=== PATIENT | female | born 1970 | race Caucasian/White ===

== ENCOUNTER → 2017-06-01 | Outpatient (CLI) | payer OTHER ==
--- NOTE | 2017-06-01 11:33 | Diagnostic Imaging Report ---
Bilateral screening mammogram 2D views with tomosynthesis The current study was also evaluated with a Computer Aided Detection (CAD) system. Indication: Screening. No current complaints stated on the questionnaire. COMPARISON: 09/08/15. Findings: The breasts are composed of extremely dense parenchyma which decreases mammographic sensitivity. There is an asymmetry measuring 9 mm with increased density seen in the medial aspect of the left breast, favored to be summation artifact of parenchyma. The right breast demonstrates no definite change. Impression: Extremely dense breast parenchyma and question of a medial left breast asymmetry. Focal compression views, evaluation and bilateral ultrasound are recommended for further evaluation. BI-RADS 0. ACR BI-RADS Category 0: Incomplete. (Needs additional imaging evaluation). Result letter will be mailed to the patient. Note: At least 10% of breast cancer is not imaged by mammography. Dictated on workstation # [id number]
== END ==
LOC: RAD 09:58
PROVIDERS: ATTEND Obstetrics & Gynecology
DX: Z12.31 Encounter for screening mammogram for malignant neoplasm of breast (principal)
CPT/HCPCS: 77067

== ENCOUNTER → 2017-06-08 | Outpatient (CLI) | payer OTHER ==
--- NOTE | 2017-06-08 14:06 | Diagnostic Imaging Report ---
EXAMINATION: Left breast diagnostic mammogram with tomography. The current study was also evaluated with a Computer Aided Detection (CAD) system. INDICATION: Medial left breast asymmetry. COMPARISON: 06/25/2014. FINDINGS: The asymmetry persists on the focal compression view; however, tomographic evaluation does not prove an underlying mass. There is an asymmetry also seen along the superior aspect of the true lateral view. A focal compression view was also performed of this area and demonstrates less prominent asymmetry and suggestion of summation artifact of underlying tissue and vessels based on the tomographic evaluation. IMPRESSION: The asymmetries in the medial and upper aspect of the left breast are likely summation artifact of parenchyma. Dense background parenchyma is present. A bilateral ultrasound is pending. ACR BI-RADS Category 0: Incomplete. (Needs additional imaging evaluation). Result letter will be mailed to the patient. Note: At least 10% of breast cancer is not imaged by mammography. Dictated by: Dictated on workstation # [id number]
--- NOTE | 2017-06-08 14:14 | Diagnostic Imaging Report ---
EXAMINATION: Bilateral breast ultrasound. INDICATION: Dense breasts. Asymmetries along the upper and medial aspect of the left breast on mammography. FINDINGS: The four-quadrants and retroareolar region of each breast were scanned with no underlying abnormality seen. There is a simple cyst at the 2 o'clock zone 4 cm from the nipple measuring 1 cm the left breast. No suspicious lesion is seen in both breasts. IMPRESSION: Essentially negative ultrasound. There is no correlating abnormality to the asymmetry seen in the upper and medial aspect of the left breast, likely from summation artifact of the dense background parenchyma. A 6 month followup left breast mammogram is recommended to ensure no adverse development. ACR BI-RADS Category 3: Probably benign findings. Dictated by: Dictated on workstation # [id number]
== END ==
LOC: RAD 08:22
PROVIDERS: ATTEND Obstetrics & Gynecology
DX: R92.8 Other abnormal and inconclusive findings on diagnostic imaging of breast (principal)

== ENCOUNTER → 2018-07-01 | Outpatient (CLI) | payer OTHER ==
--- NOTE | 2018-07-01 14:20 | Diagnostic Imaging Report ---
Indication: Left breast density. Patient presents for followup. Correlation is made with prior mammogram from 06/01/2017 and 09/08/2015. 2-D and 3-D bilateral diagnostic mammography was performed with CAD. Both breasts remain heterogeneously dense, limiting the sensitivity of mammography. The parenchymal pattern appears stable. No discrete mass or malignant-appearing microcalcifications are seen. The axillae are unremarkable. Impression: BI-RADS category 1 Stable bilateral mammograms. No mammographic features suspicious for malignancy are identified. Patient may return to routine annual screening mammography. ACR BI-RADS Category 1: Negative. Result letter will be mailed to the patient. Note: At least 10% of breast cancer is not imaged by mammography. Dictated by: Dictated on workstation # [id number]
== END ==
LOC: RAD 12:44
PROVIDERS: ATTEND Obstetrics & Gynecology
DX: R92.2 Inconclusive mammogram (principal); Z87.898 Personal history of other specified conditions; Z12.31 Encounter for screening mammogram for malignant neoplasm of breast
CPT/HCPCS: 77066

== ENCOUNTER → 2018-12-17 | Outpatient (CLI) | payer OTHER ==
--- NOTE | 2018-12-17 13:04 | Diagnostic Imaging Report ---
PROCEDURE: US Thyroid. TECHNIQUE: Multiple real-time grayscale images were obtained of the thyroid in various projections. INDICATION: Thyromegaly. COMPARISON: None available. FINDINGS: Right thyroid lobe: The right thyroid lobe measures 4.0 x 1.8 x 1.3 cm. It demonstrates diffuse homogeneous echogenicity. No nodule or cyst. Isthmus: The thyroid isthmus is normal in echogenicity and thickness measuring 0.4 cm. Left thyroid lobe: The left thyroid lobe measures 4.2 x 2.0 x 1.4 cm. It demonstrates diffuse homogeneous echogenicity. No nodule or cyst. IMPRESSION: Normal-sized thyroid without focal nodule or cyst. Dictated by: Dictated on workstation # [id number]
== END ==
LOC: RAD 07:57
PROVIDERS: ATTEND Family Medicine
DX: E01.0 Iodine-deficiency related diffuse (endemic) goiter (principal)
CPT/HCPCS: 76536

== ENCOUNTER → 2018-12-24 | Outpatient (CLI) | payer OTHER ==
--- NOTE | 2018-12-24 11:27 | Diagnostic Imaging Report ---
INDICATION: Screening for osteoporosis. COMPARISON: None FINDINGS: The bone mineral density of hips and spine was measured. There are no prior studies available for comparison. The T score for the spine is -0.1. The T score for left hip is -0.7 and for the right hip -0.9. Furthermore the T score for the left femoral neck is -0.8 and for the right femoral neck -0.9. All of these values fall within the range of normal. AP Spine L1-L4: [BMD (g/cm2): 1.187] [T-Score: -0.1] [Z-Score: -0.2] [BMD Previous: N/A] [BMD % Change: N/A] LT Hip Neck: [BMD (g/cm2): 0.929] [T-Score: -0.8] [Z-Score: -0.3] LT Hip Total: [BMD (g/cm2):0.920] [T-Score:-0.7] [Z-Score: -0.6] [BMD Previous: N/A] [BMD % Change: N/A] RT Hip Neck: [BMD (g/cm2):0.929] [T-Score:-0.8] [Z-Score:-0.3] RT Hip Total: [BMD (g/cm2):0.891] [T-score:-0.9] [Z-Score:-0.8] [BMD Previous:N/A] [BMD % Change:N/A] *Indicates significant change from prior examination based on 95% confidence level. World Health Organization criteria for BMD interpretation classify patients as Normal (T-score at or above -1.0), Osteopenic (T-score between -1.0 and -2.5) or Osteoporotic (T-score at or below -2.5). LIMITATIONS AND MODIFICATION: None. FRACTURE RISK (FRAX SCORE): The ten year probability of (%): Major Osteoporotic Fracture: [N/A] Hip Fracture: [N/A] IMPRESSION: 1. The bone mineral density of hips and spine is within normal limits. 2. 3. See below National Osteoporosis Foundation guidelines on when to potentially initiate pharmacologic therapy. Based on the National Osteoporosis Foundation Guidelines, pharmacologic treatment should be initiated in any of the following, unless clinical conditions suggest otherwise: * Any patient with prior fragility fracture of the hip or vertebrae. A spine fracture indicates 5X risk for subsequent spine fracture and 2X risk for subsequent hip fracture. * Osteoporosis (T-score <-2.5). * Postmenopausal women and men age 50 and older with low bone mass/osteopenia (T-score between -1.0 and -2.5) by DXA and 10-year major osteoporotic fracture greater than 20% or a 10-year probability of hip fracture greater than 3%. These fracture risks are supplied above in the FRAX score, if applicable. * Clinician judgement and/or patient preferences may indicate treatment for people with 10-year fracture probabilities above or below these levels. Dictated by: Dictated on workstation # [id number]
== END ==
LOC: RAD 10:04
PROVIDERS: ATTEND Family Medicine
DX: Z13.820 Encounter for screening for osteoporosis (principal)
CPT/HCPCS: 77080

== ENCOUNTER 2019-01-20 05:34 | Outpatient (CLI) | payer OTHER ==
[~2019-01-20] VITALS: Ht 172.7 cm; Wt 80.3 kg
[2019-01-20] MEDS ORDERED: LOSA100T57 PO (12:54)
[2019-01-20] MEDS ORDERED: HYDR25TA4 PO (12:54)
[2019-01-20] MEDS ORDERED: ASPI-586 PO (12:54)
[2019-01-20] MEDS ORDERED: LORA10TA76 PO (12:54)
[2019-01-20] MEDS ORDERED: AMLO2.5T2 PO (12:54)
== END 2019-01-20 12:55 | disposition home or self-care (01) ==
LOC: PREOP 05:34
PROVIDERS: ATTEND Surgery
DX: Z01.818 Encounter for other preprocedural examination (principal)

== ENCOUNTER 2019-01-27 07:05 | Day surgery (SDC) | payer OTHER ==
[~2019-01-27] VITALS: Ht 172.7 cm; Wt 80.3 kg
[~2019-01-27 07:05] MED LIST: AMLO2.5T2 PO; ASPI-586 PO; HYDR25TA4 PO; LORA10TA76 PO; LOSA100T57 PO
[2019-01-27] MEDS ORDERED: LACTATED RINGERS 1,000 ML IV STA (07:06)
[2019-01-27] MEDS ORDERED: MIDAZOLAM 2 MG/2 ML (VERSED) VIAL ONE (07:10)
[2019-01-27] MEDS ORDERED: PROPOFOL INJECTION 50 ML IV ONE (07:10)
[2019-01-27] MEDS ORDERED: LACTATED RINGERS 1,000 ML IV ONE (07:17)
[2019-01-27 07:36] VITALS: BP 141/92
--- NOTE | 2019-01-27 08:22 | Progress Note-Pre Operative ---
Pre-Operative Progress Note H&P Reviewed The H&P was reviewed, patient examined and no changes noted. Time Seen by Provider: 08:16 Date H&P Reviewed: January 27, 2019 Time H&P Reviewed: 08:15 Pre-Operative Diagnosis: Screening colon DAVON GONZALES DO January 27, 2019 08:22
--- NOTE | 2019-01-27 08:54 | Progress Note-Post Operative ---
Post-Operative Progess Note Surgeon (s)/Director Supply Chain (s) Surgeon DAVON GONZALES DO Director Supply Chain: none Pre-Operative Diagnosis Screening colon Post-Operative Diagnosis same plus internal hemorrhoids Procedure & Operative Findings Date of Procedure 01/27/19 Procedure Performed/Findings colonoscopy Anesthesia Type IV sedation by METER READING CLERK Estimated Blood Loss Estimated blood loss (mL): none Specimens/Packing Specimens Removed none DAVON GONZALES DO January 27, 2019 08:54
--- NOTE | 2019-01-27 08:55 | Endoscopy Discharge Instruct ---
Endo Procedure/Findings Findings 1.: Internal Hemorrhoids Discharge Instructions - Activity: You might feel a little sleepy until tomorrow. This is due to the medicine you received to relax you. Until tomorrow, you should: NOT drive a car, operate machinery or power tools. NOT drink any alcoholic beverages. NOT make any important decisions or sign importortant papers. Do not return to work until tomorrow, unless otherwise instructed. Resume previous activities tomorrow. Diet: Start by taking liquids. If you tolerate liquids, advance to solid food. make an appointment for one week Instructions: 1.: Colonscopy in 10 years Notify Physician - If you experience excessive bleeding, unusual abdominal pain, fever, or chest pain, contact your doctor immediately. Follow-Up: - I have received and understand the above instructions and will call my doctor if I have any further questions. Patient Signature Date Nurse Signature Other (Relationship) DAVON GONZALES DO January 27, 2019 08:55
[2019-01-27 09:00] VITALS: BP 121/77
[2019-01-27 09:30] VITALS: BP 135/85
[2019-01-27 09:45] VITALS: BP 135/85
--- NOTE | 2019-01-27 14:47 | Anesthesia-General Post-Op ---
MAC Patient Condition Mental Status/LOC: Same as Preop Cardiovascular: Satisfactory Nausea/Vomiting: Absent Respiratory: Satisfactory Pain: Controlled Complications: Absent Post Op Complications Complications None Follow Up Care/Instructions Patient Instructions None needed. Anesthesiology Discharge Order Discharge Order Patient was seen after the procedure this morning and she was doing well, no complaints, stable vital signs, no apparent adverse anesthesia problems. . BETTY JUSTICE DO January 27, 2019 14:47
--- NOTE | 2019-01-27 23:56 | OPERATIVE REPORT ---
DATE OF SERVICE: 01/27/2019 PREOPERATIVE DIAGNOSIS: Screening colonoscopy. POSTOPERATIVE DIAGNOSES: Screening colonoscopy, internal hemorrhoids. PROCEDURE: Colonoscopy. SURGEON: Justin Chen DO. ALARM SECURITY OR SURVEILLANCE MONITOR: None. ANESTHESIA: IV sedation by LEATHER PRODUCTION MACHINE OPERATOR. SPECIMENS: None. BLOOD LOSS: None. FLUIDS: Per anesthesia. POSTOPERATIVE CONDITION: Stable. INDICATION FOR PROCEDURE: The patient is a 48-year-old female who has needed a screening colonoscopy. FINDINGS: The patient had some very minimal internal hemorrhoids, but otherwise no other obvious pathology seen. PROCEDURE NOTE: After informed consent was obtained, the patient was brought to the endoscopy suite, placed in the bed in left lateral decubitus position. She was administered IV sedation by the LEATHER PRODUCTION MACHINE OPERATOR. We then monitored her vitals the entire time, heart rate, blood pressure and pulse ox. A scope was inserted, pushed all the way up to the cecum, took a picture of appendiceal orifice, noted the ileocecal valve and able to get into the terminal ileum, took a picture, looked normal and then slowly withdrew the scope insufflating to look circumferentially at the tanner looking the cecum, up the ascending colon to the hepatic flexure, then down the transverse colon, splenic flexure, into the descending colon. Finally, into the sigmoid and then down in the rectum, retroflexed the rectal vault, saw some very very minimal internal hemorrhoids. Pictures taken and the scope was then removed. The patient tolerated the procedure. She recovered in endoscopy suite. Job ID: [id number] DocumentID: [id number] Dictated Date: 01/27/2019 13:35:20 Spout Liner Helper Date: 01/27/2019 23:55:50 Dictated By: JUSTIN CHEN DO
== END 2019-01-27 09:45 | disposition home or self-care (01) ==
LOC: ENDO 07:05
PROVIDERS: ATTEND Surgery
DX: Z12.11 Encounter for screening for malignant neoplasm of colon (principal); K64.8 Other hemorrhoids; I10 Essential (primary) hypertension; K21.9 Gastro-esophageal reflux disease without esophagitis; F41.9 Anxiety disorder, unspecified; J45.909 Unspecified asthma, uncomplicated; Z79.82 Long term (current) use of aspirin; Z79.899 Other long term (current) drug therapy; Z80.0 Family history of malignant neoplasm of digestive organs; Z87.891 Personal history of nicotine dependence

== ENCOUNTER → 2019-05-01 | Outpatient (CLI) | payer OTHER | LOC: CARD 11:50 | PROVIDERS: ATTEND Internal Medicine Cardiovascular Disease | DX: I73.00 Raynaud's syndrome without gangrene (principal); I10 Essential (primary) hypertension; R07.9 Chest pain, unspecified | CPT/HCPCS: 93306 ==

== ENCOUNTER → 2020-03-18 | Outpatient (CLI) | payer OTHER | LOC: LAB 15:33 | PROVIDERS: ATTEND Emergency Medicine | DX: M79.10 Myalgia, unspecified site (principal); R53.83 Other fatigue; Z20.828 Contact with and (suspected) exposure to other viral communicable diseases | CPT/HCPCS: 87635 ==

== ENCOUNTER → 2020-10-15 | Outpatient (CLI) | payer OTHER ==
--- NOTE | 2020-10-15 11:50 | Diagnostic Imaging Report ---
INDICATION: Routine screening. COMPARISON is made with prior mammograms 07/01/2018 and 06/01/2017. 2-D and 3-D screening mammography was performed with CAD. Both breasts remain heterogeneously dense, limiting the sensitivity of mammography. Intraparenchymal lymph node upper outer right breast is stable. Small intraparenchymal lymph nodes upper-outer left breast are stable. No spiculated mass or malignant appearing microcalcifications are seen. Axillae are unremarkable. IMPRESSION: BI-RADS Category 2 No mammographic features suspicious for malignancy are identified. ACR BI-RADS Category 2: Benign findings. Result letter will be mailed to the patient. Note: At least 10% of breast cancer is not imaged by mammography. Dictated by: Dictated on workstation # [id number]
== END ==
LOC: RAD 08:13
PROVIDERS: ATTEND Obstetrics & Gynecology
DX: Z12.31 Encounter for screening mammogram for malignant neoplasm of breast (principal)
CPT/HCPCS: 77063; 77067

== ENCOUNTER → 2020-10-18 | Outpatient (CLI) | payer OTHER ==
[~2020-10-18] VITALS: Ht 172 cm; Wt 86.0 kg
[~2020-10-18] MED LIST changes: +CATHETER FLUSH 10 ML SYR IV PRN
[2020-10-18 08:52] VITALS: BP 123/76
--- NOTE | 2020-10-18 11:40 | Cardiology Stress Test Report ---
Stress Test Report Date of Procedure/Referring: Date of Procedure: Oct 18, 2020 PCP Lisa Izaguirre MD Admitting Physician Watson Costa MD Indications: Chest pain Baseline Heart Rate: 70 Baseline Blood Pressure: Blood Pressure Systolic: 123 Blood Pressure Diastolic: 76 Vital Signs Date Time Temp Pulse Resp B/P (MAP) Pulse Ox O2 Delivery O2 Flow Rate FiO2 10/18/20 08:52 70 123/76 (92) 99 Baseline Vital Signs Vital Signs Date Time Temp Pulse Resp B/P (MAP) Pulse Ox O2 Delivery O2 Flow Rate FiO2 10/18/20 08:52 70 123/76 (92) 99 Baseline EKG: Baseline EKG: normal sinus rhythm Summary: After explaining the procedure and details to the patient, she signed the consent and was brought to the stress nuclear laboratory. Patient exercised on standard Josue protocol, EKG, heart rate and blood pressure were monitored continuously, resting and stress doses of radio tracer were injected, imaging was acquired and reviewed in the short axis, horizontal long axis and vertical long axis views Patient was able to exercise for a total of 9 minutes on Josue protocol, METs 10.5 Maximum heart rate 144 Maximum blood pressure 163/74 Stress EKG, Minimal nondiagnostic changes Recovery EKG, Return to baseline TID: 0.96 SSS: 2 SDS: 2 EF: 62 Conclusion: 1. Good exercise tolerance for total of 9 minutes on standard Josue protocol, 10.5 metastases achieving 85 percent of maximum expected heart rate 2. Appropriate heart rate and blood pressure response to exercise returned to baseline during recovery 3. Minimal nondiagnostic EKG changes with exercise returned to baseline during recovery 4. Mild apical thinning, breast attenuation, no significant ischemia or infarction on SPECT images 5. Normal left ventricular size, EF 62 percent LISA IZAGUIRRE MD Oct 18, 2020 11:40
== END ==
LOC: CARD 07:45
PROVIDERS: ATTEND Internal Medicine Cardiovascular Disease
DX: R07.9 Chest pain, unspecified (principal); R94.31 Abnormal electrocardiogram [ECG] [EKG]
CPT/HCPCS: 78452; 93017; A9502

== ENCOUNTER → 2021-01-08 | Outpatient (CLI) | payer OTHER ==
[~2021-01-08] MED LIST changes: -CATHETER FLUSH 10 ML SYR IV PRN
== END ==
LOC: LAB 11:28
PROVIDERS: ATTEND Emergency Medicine
DX: T75.3XXA Motion sickness, initial encounter (principal); Z20.822 Contact with and (suspected) exposure to COVID-19
CPT/HCPCS: 87635

== ENCOUNTER → 2021-12-19 | Outpatient (CLI) | payer OTHER ==
--- NOTE | 2021-12-19 11:19 | Diagnostic Imaging Report ---
Indication: Routine screening. Comparison is made with prior mammograms 10/15/2020 and 07/01/2018. 2-D and 3-D bilateral screening mammography was performed with CAD. Both breasts are heterogeneously dense, limiting the sensitivity of mammography. Intraparenchymal lymph node in the upper right breast appears stable. Benign lymph nodes in the upper left breast are stable. No new mass or malignant-appearing microcalcifications are seen. Axillae are unremarkable. IMPRESSION: BI-RADS Category 2 No mammographic features suspicious for malignancy are identified. ACR BI-RADS Category 2: Benign findings. Result letter will be mailed to the patient. Note: At least 10% of breast cancer is not imaged by mammography. Dictated by: Dictated on workstation # [id number]
== END ==
LOC: RAD 08:46
PROVIDERS: ATTEND Family Medicine
DX: Z12.31 Encounter for screening mammogram for malignant neoplasm of breast (principal)
CPT/HCPCS: 77063; 77067

== ENCOUNTER → 2023-01-22 | Outpatient (CLI) | payer OTHER ==
--- NOTE | 2023-01-22 17:02 | Diagnostic Imaging Report ---
INDICATION: Tailbone pain x 1 year. FINDINGS: AP and lateral views of the sacrum and coccyx show slight dorsal displacement of the distal coccyx that could be from previous trauma. IMPRESSION: Slight dorsal offset of the distal coccyx, consistent with remote trauma. Dictated by: Dictated on workstation # [id number]
--- NOTE | 2023-01-22 18:47 | Diagnostic Imaging Report ---
PROCEDURE: US non-OB pelvis comp/trans. TECHNIQUE: Multiple real-time grayscale images were obtained of the pelvis in various projections endovaginally. Transabdominal imaging was also performed. INDICATION: Abnormal uterine bleeding. COMPARISON: None. FINDINGS: Uterus is anteverted and measures 9.8 x 5.3 x 6 cm. Relative hypoechoic area is identified anteriorly within the lower uterine segment and measures 2.4 x 1.6 x 1.8 cm and may be on the basis of a fibroid. Endometrial stripe is abnormally thickened and heterogeneous. It measures 16 mm in AP thickness. There is also a more focal hypoechoic area posteriorly within the lower endometrial region that measures 1.5 x 0.6 cm. Right ovary measures 2 x 1.5 x 2.1 cm, and the left measures 2.6 x 1.6 x 2.9 cm. Anechoic benign-appearing cyst of the right ovary measures 1.6 x 1.3 x 1.7 cm. Cystic appearing structure is also seen associated with the left ovary, but is difficult to adequately visualize. IMPRESSION: 1. Abnormal heterogeneous thickened appearance of the uterus with more focal hypoechoic area in the lower segment. This is a concerning finding especially given patient's postmenopausal status. Further evaluation is advised. 2. Probable fibroid within the lower anterior myometrium. 3. Bilateral ovarian cysts. Dictated by: Dictated on workstation # [id number]
== END ==
LOC: RAD 12:12
PROVIDERS: ATTEND Family Medicine
DX: N93.9 Abnormal uterine and vaginal bleeding, unspecified (principal); N83.201 Unspecified ovarian cyst, right side; N83.202 Unspecified ovarian cyst, left side
CPT/HCPCS: 72220; 76830; 76856

== ENCOUNTER 2023-03-05 05:30 | Outpatient (CLI) | payer OTHER ==
[~2023-03-05] VITALS: Ht 172.7 cm; Wt 90.9 kg
[~2023-03-05 05:30] MED LIST changes: -LOSA100T57 PO; +LOSA100T58 PO
[2023-03-05] MEDS ORDERED: RT-ALBUINH INH (15:09)
[2023-03-05] MEDS ORDERED: LEVO88CA4 PO (15:09)
[2023-03-05] MEDS ORDERED: LOSA1TAB20 PO (15:09)
[2023-03-05] MEDS ORDERED: MULT-1136 PO (15:09)
== END 2023-03-05 15:10 | disposition home or self-care (01) ==
LOC: PREOP 05:30
PROVIDERS: ATTEND Obstetrics & Gynecology
DX: Z01.818 Encounter for other preprocedural examination (principal)

== ENCOUNTER 2023-03-12 07:37 | Day surgery (SDC) | payer OTHER ==
[2023-03-12] VITALS (11 sets, daily range): BP systolic 118–135; BP diastolic 70–85
[~2023-03-12] VITALS: Ht 172.7 cm; Wt 90.9 kg
[~2023-03-12 07:37] MED LIST changes: +LEVO88CA4 PO; +LOSA1TAB20 PO; +MULT-1136 PO; +RT-ALBUINH INH
[2023-03-12] MEDS ORDERED: MIDAZOLAM 2 MG/2 ML (VERSED) VIAL ONE (08:04)
[2023-03-12] MEDS ORDERED: ONDANSETRON 4 MG/2 ML (SDV) Z0FRAN ONE (08:04)
[2023-03-12] MEDS ORDERED: LIDOCAINE PF 2% 5 ML (XYLOCAINE) VIAL ONE (08:04)
[2023-03-12] MEDS ORDERED: fentaNYL INJ 100 MCG/2 ML AMP ONE (08:04)
[2023-03-12] MEDS ORDERED: SEVOFLURANE (ULTANE) 15 ML INHAL SOLN ONE (08:04)
[2023-03-12] MEDS ORDERED: proPOfol 200 MG/20 ML (DIPRIVAN) VIAL IV ONE (08:04)
[2023-03-12] MEDS: LACTATED RINGERS 1,000 ML IV PRN ×2 (08:49→09:40)
[2023-03-12] MEDS ORDERED: ASPI-1238 PO (08:57)
--- NOTE | 2023-03-12 09:33 | Progress Note-Pre Operative ---
Pre-Operative Progress Note Date H&P Reviewed: Mar 12, 2023 Time H&P Reviewed: 09:32 History & Physical: H&P Reviewed, No changes noted Pre-Operative Diagnosis: AUB endometrial polyp MICHAEL ROSENBERG DO Mar 12, 2023 09:33
--- NOTE | 2023-03-12 10:26 | Hysteroscopy D&C Operative ---
Hysteroscopy D&C Note Hysteroscopy D&C Note Date of Procedure: 03/12/23 Preoperative Diagnosis: Elijah harry a (53 /Para / , Gestational Age (wks) with [] Postoperative Diagnosis: Same Surgeon: MICHAEL ROSENBERG Director Of Perioperative Services: [none] Anesthesia: General Name of the Procedure: Hysteroscopy, dilatation and curettage Findings of the Procedure: Multiple endometrial polyps EBL: Minimal Specimen(s) collected/removed: Endometrial Curettings Complications: None[] Condition: []Stable to recovery room Indications for Procedure: This 53-year-old Presents for a D&C hysteroscopy secondary to abnormal uterine bleeding with endometrial polyps. Risks, benefits and alternatives to the proposed procedure were discussed with the patient and informed consent was obtained. Description of Procedure: The patient was taken to the operating room and placed in the dorsal supine position. General anesthesia was obtained without difficulty by our anesthesia colleagues. Her legs were placed in stirrups and she was moved to the dorsal lithotomy position. The vagina, perineum and vulva were prepped and draped in the typical sterile fashion. The bladder was emptied for 125 cc A weighted speculum was placed in the vaginal vault and the anterior lip of the cervix was grasped with a single-tooth tenaculum. The uterus sounded to 10 cm. The cervix was gently dilated with Hegar dilators to accommodate the hysteroscope. The hysteroscope was inserted and multiple endometrial polyps were seen. Both ostia were visualized. Endometrial curettings were obtained until there was a good uterine cry and sent to pathology. The procedure was complete and all instruments were removed from the vagina. Sponge and instrument counts were correct. The patient was awakened from anesthesia and taken to the recovery room in stable condition. Vitals - Labs Vital Signs - I&O Vital Signs Date Time Temp Pulse Resp B/P (MAP) Pulse Ox O2 Delivery O2 Flow Rate FiO2 03/12/23 07:45 37.1 69 20 127/78 (94) 100 Room Air MICHAEL ROSENBERG DO Mar 12, 2023 10:26
[2023-03-12] MEDS ORDERED: IBUP-1773 PO (10:27)
--- NOTE | 2023-03-12 10:28 | Anesthesia-General Post-Op ---
General Patient Condition Mental Status/LOC: Same as Preop Cardiovascular: Satisfactory Nausea/Vomiting: Absent Respiratory: Satisfactory Pain: Controlled Complications: Absent Post Op Complications Complications None Follow Up Care/Instructions Patient Instructions None needed. Anesthesia/Patient Condition Patient Condition Patient is doing well, no complaints, stable vital signs, no apparent adverse anesthesia problems. No complications reported per nursing. CARMEN GUTIERREZ CRNA Mar 12, 2023 10:28
[2023-03-12] MEDS ORDERED: fentaNYL INJ 100 MCG/2 ML AMP IVP ONE (10:30)
[2023-03-12] MEDS ORDERED: ONDANSETRON 4 MG/2 ML (SDV) Z0FRAN IVP PRN (10:30)
== END 2023-03-12 12:20 | disposition home or self-care (01) ==
LOC: SDC 07:37
PROVIDERS: ATTEND Obstetrics & Gynecology
DX: N84.0 Polyp of corpus uteri (principal); Z87.891 Personal history of nicotine dependence
CPT/HCPCS: 84703; 87081

== ENCOUNTER → 2023-05-08 | Outpatient (CLI) | payer OTHER ==
[~2023-05-08] MED LIST changes: +ASPI-1238 PO; +IBUP-1773 PO
--- NOTE | 2023-05-08 15:30 | Diagnostic Imaging Report ---
Indication: Routine screening. Comparison is made with prior mammograms from 12/19/2021 and 10/15/2020. 2-D and 3-D bilateral screening mammography was performed with CAD. Both breasts are heterogeneously dense, limiting the sensitivity of mammography. The parenchymal pattern is stable. No mass or malignant-appearing microcalcifications are seen. Axillae are unremarkable. IMPRESSION: BI-RADS Category 1 No mammographic features suspicious for malignancy are identified. ACR BI-RADS Category 1: Negative. Result letter will be mailed to the patient. Note: At least 10% of breast cancer is not imaged by mammography. Dictated by: Dictated on workstation # [id number]
== END ==
LOC: RAD 08:27
PROVIDERS: ATTEND Obstetrics & Gynecology
DX: Z12.31 Encounter for screening mammogram for malignant neoplasm of breast (principal)
CPT/HCPCS: 77063; 77067

== ENCOUNTER 2023-05-29 11:02 | Outpatient (RCR) | payer OTHER | END 2023-05-29 11:27 | disposition home or self-care (01) | PROVIDERS: ATTEND Obstetrics & Gynecology | DX: N39.3 Stress incontinence (female) (male) (principal) ==